=== PATIENT | female | born 1990 | race Caucasian/White ===

== ENCOUNTER → 2017-01-21 | Outpatient (CLI) | payer OTHER ==
[2017-01-21 19:39] LABS: CH 30.1; CHCM 34.8; HCT 40.8 % (34.0-46.0); HDW 2.64; HGB 13.6 gm/dL (11.4-16.0); MCHC 33.4 g/dL (31.0-37.0); MCV 86.8 fL (80.0-100.0); Mean Platelet Volume 6.8; RDW 12.1 % (11.5-15.5); WBC 6.6 k/uL (3.8-10.6)
[2017-01-21 19:52] LABS: Glucose 90 mg/dL (74-99); Non-African American GFR(MDRD) >60 (>60 ml/min/1.73 sqM)
[2017-01-21 20:22] LABS: Hepatitis B Surface Ag Index 0.08
--- NOTE | 2017-01-22 11:48 | US ---
EXAMINATION TYPE: US OB <= 14 wk fetus DATE OF EXAM: 01/21/2017 6:22 PM COMPARISON: NONE CLINICAL HISTORY: Z36 Confirm Dates. EXAM PERFORMED: OBTA EXAM MEASUREMENTS: GESTATIONAL AGE / DATING Physician Established: not established Dates by LMP: (11 weeks/3 days) EDC: 08/09/2017 Dates by First Scan: STUDENT RECORDS SPECIALIST Dates by Current Scan for: (11 weeks/ 1 days) EDC: 08/11/2017 MATERNAL ANATOMY Uterus: 10.4 x 8.2 x 7.4cm Right Ovary: 2.6 x 2.0 x 1.5cm Left Ovary: 3.6 x 2.4 x 2.4cm Post CDS / Adnexa: wnl Presence of free fluid: no Presence of corpus luteal cyst: not seen Presence of subchorionic bleed: no GESTATION / SURVEY CRL: 4.2 (11 weeks/1 days) MSD: wnl Yolk Sac (normal less than 6mm): not seen Heart Rate: 178 bpm Rhythm: Normal IUP: Viable IUP Date of LMP: 11/02/2016 Beta HcG (if available): not available TECHNOLOGIST IMPRESSION: Viable 11w1d fetus seen and appears wnl IMPRESSION: 1. Single intrauterine gestation estimated at 11 weeks 1 day gestation based on crown-rump length teodoro surement. This would have a calculated EDC of 08/11/2017 based on current measurements.
[2017-01-24 04:16] LABS: HIV-1/HIV-2 Ab Screen NONREAC (NON REAC)
[2017-01-25 04:06] LABS: Toxoplasma Antibody (IgG) <3.0 IU/mL (<7.2)
== END | disposition home or self-care (01) ==
LOC: RADUSMAIN 18:00
PROVIDERS: ATTEND Obstetrics & Gynecology
DX: Z36 Encounter for antenatal screening of mother (principal); O26.811 Pregnancy related exhaustion and fatigue, first trimester; Z3A.11 11 weeks gestation of pregnancy
CPT/HCPCS: 76801; 82565; 82947; 85027; 86762; 86777; 86778; 86780; 86850; 86900; 86901; 87340; 87389

== ENCOUNTER → 2017-05-07 | Outpatient (CLI) | payer OTHER ==
[2017-05-07 10:33] LABS: CHCM 34.7; HCT 35.1 % (34.0-46.0); HDW 3.24; HGB 11.8 gm/dL (11.4-16.0); MCH 29.3 pg (25.0-35.0); MCHC 33.7 g/dL (31.0-37.0); MCV 87.1 fL (80.0-100.0); Mean Platelet Volume 7.4; RBC 4.03 m/uL (3.80-5.40); RDW 12.4 % (11.5-15.5); WBC 7.3 k/uL (3.8-10.6)
== END | disposition home or self-care (01) ==
LOC: LABWHC1 09:11
PROVIDERS: ATTEND Obstetrics & Gynecology
DX: Z34.82 Encounter for supervision of other normal pregnancy, second trimester (principal)
CPT/HCPCS: 36415; 82950; 85027

== ENCOUNTER → 2017-05-13 | Outpatient (CLI) | payer OTHER ==
[2017-05-13 12:47] LABS: Glucose 3 Hour, Gest 53 mg/dL
== END | disposition home or self-care (01) ==
LOC: LABWHC1 07:33
PROVIDERS: ATTEND Obstetrics & Gynecology
DX: O99.810 Abnormal glucose complicating pregnancy (principal); Z3A.00 Weeks of gestation of pregnancy not specified
CPT/HCPCS: 36415; 82951; 82952

== ENCOUNTER 2017-06-09 19:24 | Outpatient (CLI) | payer OTHER ==
[2017-06-09 20:44] VITALS: BP 114/80; PULSE 98; RESP 17; TEMP 96.7
--- NOTE | 2017-06-10 08:39 | P.MSEPDOC ---
Presenting Problems - Arrival Data Date of Arrival on Unit: 06/09/17 Time of Arrival on Unit: 19:24 Mode of Transport: Ambulatory - Complaint OB-Reason for Admission/Chief Complaint: Decreased Movement Medical History - Information : 3 Para: 2 Term: 2 : 0 Abortions: Spontaneous or Elective: 0 Number of Living Children: 2 - Gestational Age Expected Date of Delivery: 07/09/17 Gestational Age by LONI (wks/days): 35 Weeks and 6 Days Review of Systems - Review of Systems Constitutional: No problems Breast: No problems ENT: No problems Cardiovascular: No problems Respiratory: No problems Gastrointestinal: No problems Genitourinary: No problems Musculoskeletal: No problems Neurological: No problems Skin: No problems Comment: depression Vital Signs - Temperature Temperature: 96.7 F Temperature Source: Temporal Artery Scan - Pulse Pulse Oximetery Pulse Rate: 98 - Respirations Respiratory Rate: 17 Oxygen Delivery Method: Room Air O2 Sat by Pulse Oximetry: 98 - Blood Pressure Right Arm Blood Pressure: 114/80 Blood Pressure Mean: 91 Blood Pressure Source: Automatic Cuff Medical Screen Scoring (Pre) - Cervical Exam Dilation: Exam Deferred Effacement: Exam Deferred Membranes: Intact - Uterine Contractions Frequency: N/A Duration: N/A Intensity: N/A - Maternal Vital Signs Maternal Temperature: N/A Maternal Blood Pressure: N/A Signs of Preeclampsia: N/A Maternal Respirations: N/A - Maternal Trauma Maternal Trauma: N/A - Assessment Baseline FHR: 135 Heart Rate - NICHD Category: Category I (Normal) = 0 NST: Reactive Position: N/A Station: N/A - Total Score Total Score (Pre): 0 - Level of Risk Level of Risk: N/A Physician Notification (Pre) - Physician Notified Physician Notified Date: 06/09/17 Physician Notified Time: 20:26 Physician/Practitioner Notifed:: Nelda Spoke With: telephone New Order Received: Yes (discharge and have patient follow up in office tomorrow.) Disposition - Disposition OB Disposition: Discharge to home Discharge Date: 06/09/17 Discharge Time: 20:40 I agree with the RN Medical Screening Exam: Yes Risk & Benefit of care provided described in d/c instruction: Yes Diagnosis: RELATED CONDITIONS, UNSPECIFIED, THIRD TRIMESTER
== END 2017-06-09 20:40 | disposition home or self-care (01) ==
LOC: FBPOP 19:24
PROVIDERS: ATTEND Obstetrics & Gynecology
DX: O26.93 Pregnancy related conditions, unspecified, third trimester (principal); Z3A.35 35 weeks gestation of pregnancy
CPT/HCPCS: 59025; 99213

== ENCOUNTER 2017-07-19 06:00 | Inpatient (IN) | payer OTHER ==
--- NOTE | 2017-07-18 18:04 | P.HPOB ---
History of Present Illness H&P Date: 07/18/17 Chief Complaint: Intrauterine growth restriction. This patient is a pleasant 26-year-old 3 para 2 female estimated date of confinement 08/09/2017 estimated gestational age 37-0/7 weeks who presents to labor and delivery for induction of labor secondary to intrauterine growth restriction. Patient's had been uncomplicated until approximately 35 weeks when she had a growth ultrasound that showed very poor growth. I refer this patient to maternal- medicine for evaluation and Dr. Worthington felt that this baby had severe IUGR with growth less than the 5th percentile recommended delivery at 37-0/7 weeks. Nonstress testing has been normal as well as Dopplers. The maternal- medicine physician did not know the etiology of her growth restriction. I had a long discussion with the patient and her about the recommendations for delivery, benefits and risks. They wish to proceed at this time. Review of Systems Constitutional: Denies chills, Denies fever Ears, nose, mouth and throat: Denies headache, Denies sore throat Cardiovascular: Denies chest pain, Denies shortness of breath Respiratory: Denies cough Gastrointestinal: Reports heartburn Genitourinary: Reports Menstruation: Reports amenorrhea Past Medical History Past Medical History: Asthma History of Any Multi-Drug Resistant Organisms: None Reported Past Surgical History: Adenoidectomy, Tonsillectomy Past Anesthesia/Blood Transfusion Reactions: No Reported Reaction Past Psychological History: Depression Smoking Status: Never smoker Past Drug Use History: None Reported - Past Family History Father Family Medical History: Coronary Artery Disease (CAD) Additional Family Medical History / Comment(s): Father of heart attack at 50 years of age Medications and Allergies Home Medications Medication Instructions Recorded Confirmed Type Scd-Mfik-Ousez Acid 1 tab PO DAILY 05/29/15 06/09/17 History [-U Capsule (formulary)] Allergies Allergy/AdvReac Type Severity Reaction Status Date / Time No Known Allergies Allergy Verified 05/29/15 17:35 Exam - OBG Physical Exam Abdomen: bowel sounds normal, no diffuse tenderness, no bruit present, no guarding noted, no hepatomegaly, no splenomegaly, no mass Vulva: both: normal Vagina: normal moisture, no discharge Cervix: Cervix in the office is 2 cm dilated and soft. Uterus: enlarged (Fundal height is 36 cm) Results blood work shows she is O positive, rubella immune, RPR nonreactive, HIV nonreactive, hepatitis B negative, group B strep was negative, Glucola was abnormal with a normal three-hour gtt., ultrasounds as above. Assessment and Plan (1) IUGR (intrauterine growth restriction) affecting care of mother Narrative/Plan: This is a pleasant 26-year-old 3 para 2 female 37-0/7 weeks gestation with severe IUGR with recommendations for delivery per maternal medicine. Plan at this time is induction of labor and anticipate vaginal delivery. I have had a long discussion with the patient and her about clinical situation and current recommendations in the understand the benefits and risks of delivery versus not. Plan at this time is induction of labor. Patient understands that I will not be here the rest of the week and therefore Dr. Raygoza we will proceed with the rest of the induction and delivery. Status: Acute
[2017-07-19] MEDS ORDERED: OXYTOCIN 20 UNITS/1000 ML NS 1,000 ML IV SCH (06:29)
[2017-07-19] MEDS ORDERED: METHYLERGONOVINE 0.2 MG/ML 1 ML AMP IM PRN (06:29)
[2017-07-19] MEDS ORDERED: CARBOPROST TROMETHAMINE 250 MCG/ML 1 ML AMP IM PRN (06:29)
[2017-07-19] MEDS ORDERED: LIDOCAINE 1% (PF) 10 MG/ML (30 ML SDV) SQ PRN (06:29)
[2017-07-19] MEDS ORDERED: TERBUTALINE 1 MG/ML VIAL SQ PRN (06:29)
[2017-07-19] MEDS ORDERED: OXYTOCIN 10 UNIT/ML 1 ML VIAL IM PRN (06:29)
[2017-07-19] MEDS: LACTATED RINGERS 1,000 ML IV SCH ×2 (06:35→11:30)
[2017-07-19 06:37] VITALS: BMI 33.0
[2017-07-19 07:00] LABS: Basophils # (A) 0.1 k/uL (0-0.2); Basophils % (A) 1 %; CH 27.7; CHCM 34.2; Eosinophils # (A) 0.1 k/uL (0-0.7); Eosinophils % (A) 1 %; HCT 38.7 % (34.0-46.0); HDW 3.15; HGB 12.7 gm/dL (11.4-16.0); Luc % (Auto) 3; Lymphocytes # (A) 3.7 k/uL (1.0-4.8); Lymphocytes % (A) 37 %; MCH 26.7 pg (25.0-35.0); MCHC 32.9 g/dL (31.0-37.0); MCV 81.3 fL (80.0-100.0); Monocytes # (A) 0.7 k/uL (0-1.0); Monocytes % (A) 7 %; Neutrophils # (A) 5.3 k/uL (1.3-7.7); Neutrophils % (A) 52 %; RBC 4.77 m/uL (3.80-5.40); RDW 14.7 % (11.5-15.5); WBC 10.1 k/uL (3.8-10.6); WBC (Perox) 9.91
[2017-07-19 08:12] LABS: ALT 22 U/L (9-52); AST 17 U/L (14-36); LDH 459 U/L (313-618); Non-African American GFR(MDRD) >60 (>60 ml/min/1.73 sqM); Uric Acid 7.5 mg/dL (3.7-7.4)
[2017-07-19 08:30] LABS: INR 0.9 (<1.2); Partial Thromboplastin Time 23.9 sec (22.0-30.0); Prothrombin Time 9.5 sec (9.0-12.0)
[2017-07-19] MEDS ORDERED: BUPIVACAINE (PF) 0.25% 30 ML VIAL ONE (11:34)
[2017-07-19] MEDS ORDERED: SODIUM CHLORIDE 0.9% 100 ML BAG ONE (11:34)
[2017-07-19] MEDS ORDERED: fentaNYL (PF) 50 MCG/ML 5 ML AMP ONE (11:34)
[2017-07-19] MEDS ORDERED: BUPIVACAINE (PF) 0.25% 25 ML, fentaNYL (PF) 200 MCG in SODIUM CHLORIDE 0.9% 71 ML EPIDURAL ONE (11:57)
[2017-07-19] MEDS ORDERED: LANOLIN CREAM 5 GM TUBE TOPICAL PRN (13:31)
[2017-07-19] MEDS ORDERED: diphenhydrAMINE 25 MG CAP PO PRN (13:31)
[2017-07-19] MEDS ORDERED: diphenhydrAMINE 50 MG/ML 1 ML VIAL IVP PRN (13:31)
[2017-07-19] MEDS ORDERED: BISACODYL 10 MG SUPP RECTAL PRN (13:31)
[2017-07-19] MEDS ORDERED: WITCH HAZEL 1 EACH MED..PAD TOPICAL PRN (13:31)
[2017-07-19] MEDS ORDERED: IBUPROFEN 600 MG TAB PO PRN (13:31)
[2017-07-19] MEDS ORDERED: ZOLPIDEM 5 MG TAB PO PRN (13:31)
[2017-07-19] MEDS ORDERED: BENZOCAINE/MENTHOL SPRAY 1 GM/SPRAY AEROSOL TOPICAL PRN (13:31)
[2017-07-19] MEDS ORDERED: Acetaminophen-Codeine 300-30mg TAB PO PRN ×2 (13:31)
[2017-07-19] MEDS ORDERED: HYDROCORTISONE 2.5% RECTAL CREAM 30 GM TUBE RECTAL PRN (13:31)
[2017-07-19] MEDS ORDERED: SIMETHICONE 80 MG CHEWABLE PO PRN (13:31)
[2017-07-19] MEDS ORDERED: ACETAMINOPHEN TAB 325 MG TAB PO PRN (13:31)
--- NOTE | 2017-07-19 13:33 | P.PROBDLV ---
Vaginal Delivery Note - . Vaginal Delivery Note: 26 year old presents at 37 weeks for induction of labor due to IUGR. Cervix is 2/50/-2 and she is not ric. heart tones are 130 to 135 with moderate variability and reactive. Amniotomy was performed at 6:40 in the morning clear fluid noted. Pitocin was also started. When she was 3 cm dilated she got an epidural. She progressed to complete by 1309. She pushed and delivered a viable female infant over intact perineum under epidural anesthesia at 1317. Head delivered OA, anterior shoulder delivered gentle downward traction followed by posterior shoulder and rest of body. Nose and mouth bulb suctioned, placed on mother's abdomen. Patient wanted delayed cord clamping so when the cord stopped pulsing the cord was clamped and cut. Apgars 8, 9, weight 4 lbs. 4 oz. Placenta delivered spontaneously, intact with three-vessel cord. Vagina, cervix, and perineum were inspected. No lacerations noted. Estimated blood loss 100 mL. Mother and baby in stable condition.
[2017-07-19] MEDS: SENNOSIDES-DOCUSATE SODIUM 1 EACH TAB PO SCH (23:46)
--- NOTE | 2017-07-20 07:23 | P.PNOBGVD ---
Subjective - Subjective Principal diagnosis: S/P NVD PPD #1 Interval history: Patient seen and examined. Denies N/V, F/C, CP, SOB, calf pain. Patient reports: Reports appetite normal, Reports voiding normally, Reports pain well controlled, Reports ambulating normally Objective - Latest Vital Signs Latest vital signs: Vital Signs Temp Pulse Resp BP 07/20/17 00:00 97.6 F 70 16 139/85 07/19/17 20:00 98.3 F 77 16 129/78 07/19/17 16:00 98.5 F 82 16 135/72 07/19/17 15:31 98.1 F 86 16 132/78 07/19/17 15:01 82 16 136/68 07/19/17 14:31 81 16 147/78 07/19/17 14:16 98.0 F 69 16 139/86 07/19/17 14:01 70 16 147/80 07/19/17 13:46 98.4 F 76 16 134/77 07/19/17 13:31 98.2 F 76 16 131/73 Intake and Output 07/19/17 07/20/17 07/20/17 22:59 06:59 14:59 Other: # Voids 1 1 - Exam Lungs: bilateral: normal Chest: Normal S1, Normal S2 Extremities: Present: normal Abdomen: Present: normal appearance, soft Uterus: Present: normal, firm - Labs Labs: Abnormal Lab Results - Last 24 Hours (Table) 07/19/17 Range/Units 07:42 Uric Acid 7.5 H (3.7-7.4) mg/dL Assessment and Plan (1) Normal vaginal delivery Narrative/Plan: 1. continue pp care Current Visit: Yes Status: Acute Code(s): O80 - ENCOUNTER FOR FULL-TERM UNCOMPLICATED DELIVERY SNOMED Code(s): 50947218
[2017-07-20] MEDS: SENNOSIDES-DOCUSATE SODIUM 1 EACH TAB PO SCH ×2 (12:27→20:11)
--- NOTE | 2017-07-21 07:24 | P.DS ---
Providers Date of admission: 07/19/17 06:10 Expected date of discharge: 07/21/17 Attending physician: Sal Robert Primary care physician: Derik Cowan - Discharge Diagnosis(es) (1) Normal vaginal delivery Current Visit: Yes Status: Acute Hospital Course: Patient presented for induction of labor at 37 weeks for intrauterine growth restriction. She underwent a normal vaginal delivery. Her course was uncomplicated. She'll be discharged home day #2 in stable condition to follow-up with Dr. Robert in 6 weeks. Plan - Discharge Summary New Discharge Prescriptions: New Ibuprofen [Motrin] 600 mg PO Q6HR PRN #30 tab PRN Reason: Mild Pain Or Fever >= 100.5 No Action Iwv-Iztn-Gcyyz Acid [-U Capsule (formulary)] 1 tab PO DAILY Discharge Medication List Irt-Gmie-Exbht Acid [-U Capsule (formulary)] 1 tab PO DAILY 08/05 [History] Ibuprofen [Motrin] 600 mg PO Q6HR PRN #30 tab 07/21/17 [Rx] Follow up Appointment(s)/Referral(s): Acacia Raygoza DO [Doctor of Osteopathic Medicine] - 6 Weeks Discharge Disposition: HOME SELF-CARE
[2017-07-21] MEDS: SENNOSIDES-DOCUSATE SODIUM 1 EACH TAB PO SCH (09:43)
[2017-07-21 16:06] VITALS: BP 138/85; PULSE 73; RESP 14; TEMP 98
== END 2017-07-21 19:00 | disposition home or self-care (01) | DRG 775 ==
LOC: 4FBP 06:10
PROVIDERS: ADMIT Obstetrics & Gynecology; ATTEND Obstetrics & Gynecology
PROC: 10E0XZZ Delivery of Products of Conception, External Approach (ICD-10-PCS; principal; 2017-07-19)
PROC: 3E033VJ Introduction of Other Hormone into Peripheral Vein, Percutaneous Approach (ICD-10-PCS; 2017-07-19)
PROC: 10907ZC Drainage of Amniotic Fluid, Therapeutic from Products of Conception, Via Natural or Artificial Opening (ICD-10-PCS; 2017-07-19)
DX: O36.5930 Maternal care for other known or suspected poor fetal growth, third trimester, not applicable or unspecified (principal); O99.344 Other mental disorders complicating childbirth; F32.9 Major depressive disorder, single episode, unspecified; Z37.0 Single live birth; O99.52 Diseases of the respiratory system complicating childbirth; J45.909 Unspecified asthma, uncomplicated; Z3A.37 37 weeks gestation of pregnancy; Z82.49 Family history of ischemic heart disease and other diseases of the circulatory system
CPT/HCPCS: 82565; 83615; 84450; 84460; 84550; 85025; 85610; 85730; 88307

== ENCOUNTER 2018-03-26 21:58 | Emergency (ER) | payer OTHER ==
--- NOTE | 2018-03-27 00:03 | ED ---
General Adult HPI - General Chief complaint: Wound/Laceration Stated complaint: L Thumb Cut Time Seen by Provider: 03/26/18 23:20 Source: patient Mode of arrival: ambulatory Limitations: no limitations - History of Present Illness Initial comments: Patient is a 27-year-old female who presents with a chief complaint of a laceration to the pad of her left thumb. The patient states that she accidentally cut herself with a stainless steel knife while cutting chicken today. This happened about 6:00 this evening. The patient states that initially there was a lot of bleeding. Patient states the bleeding is controlled with pressure. Patient states that she is not having much pain there currently. Sensation and strength is intact. Patient does not have any other contributory medical history, no known ALLERGIES. - Related Data Home Medications Medication Instructions Recorded Confirmed Kbm-Hlks-Igrjy Acid 1 tab PO DAILY 05/29/15 07/19/17 [-U Capsule (formulary)] Previous Rx's Medication Instructions Recorded Ibuprofen [Motrin] 600 mg PO Q6HR PRN #30 tab 07/21/17 Sulfamethox-Tmp 800-160Mg [Bactrim 1 tab PO Q12HR #14 tab 03/26/18 DS 800-160 mg] Allergies Allergy/AdvReac Type Severity Reaction Status Date / Time No Known Allergies Allergy Verified 03/26/18 22:22 Review of Systems ROS Statement: Those systems with pertinent positive or pertinent negative responses have been documented in the HPI. ROS Other: All systems not noted in ROS Statement are negative. Past Medical History Past Medical History: Asthma History of Any Multi-Drug Resistant Organisms: None Reported Past Surgical History: Adenoidectomy, Tonsillectomy Past Anesthesia/Blood Transfusion Reactions: No Reported Reaction Past Psychological History: Depression Smoking Status: Never smoker Past Alcohol Use History: None Reported Past Drug Use History: None Reported - Past Family History Father Family Medical History: Coronary Artery Disease (CAD) Additional Family Medical History / Comment(s): Father of heart attack at 50 years of age General Exam Limitations: no limitations General appearance: alert, in no apparent distress Head exam: Present: atraumatic, normocephalic Eye exam: Present: normal appearance ENT exam: Present: normal exam Neck exam: Present: normal inspection Respiratory exam: Present: normal lung sounds bilaterally. Absent: respiratory distress, wheezes Cardiovascular Exam: Present: regular rate, normal rhythm GI/Abdominal exam: Present: soft. Absent: distended, tenderness Rectal exam: Present: deferred Extremities exam: Present: other (Patient has a 2 cm very superficial laceration to the pad of her left thumb.) Back exam: Present: normal inspection Neurological exam: Present: alert, oriented X3, normal gait Psychiatric exam: Present: normal affect, normal mood Skin exam: Present: warm, dry, intact Course Vital Signs 03/26/18 22:19 Temperature 98.2 F Pulse Rate 74 Respiratory 18 Rate Blood Pressure 133/93 O2 Sat by Pulse 98 Oximetry Medical Decision Making - Medical Decision Making Patient presents with chief complaint of a laceration to her left thumb. On initial evaluation, vital signs are stable, patient is in no acute distress. Examination of the patient's left hand shows a very superficial laceration to the pad of the left thumb. Bleeding is controlled. Laceration was explored, it is only through the epidermis. At this time, stitches are not warranted. Patient is concerned for infection that she was cutting raw chicken. At this time, there does not appear to be any acute infection. Tetanus status is up-to- date. I discussed use of triple antibiotic ointment with the patient, and washing the area. Given patient's concern for infection, she was written a prescription for Bactrim however she was instructed not to fill it immediately. She was given exquisite sides and symptoms that should prompt return visit for reevaluation of infection. Patient was instructed to fill the prescription if she has any increased swelling, drainage, erythema, or pain tracking toward her hand. She was instructed to follow up with primary care in 1-2 days, return to the emergency department if symptoms worsen. Disposition Clinical Impression: Laceration Disposition: HOME SELF-CARE Condition: Good Prescriptions: Sulfamethox-Tmp 800-160Mg [Bactrim DS 800-160 mg] 1 tab PO Q12HR #14 tab Is patient prescribed a controlled substance at d/c from ED?: No Referrals: Derik Cowan MD [Primary Care Provider] - 1-2 days
[2018-03-27 00:14] VITALS: BP 122/82; PULSE 83; RESP 17; TEMP 98.1
== END 2018-03-27 00:14 | disposition home or self-care (01) ==
LOC: EC 21:58
DX: S61.012A Laceration without foreign body of left thumb without damage to nail, initial encounter (principal); W26.0XXA Contact with knife, initial encounter
CPT/HCPCS: 99282

== ENCOUNTER 2019-04-17 07:35 | Day surgery (SDC) | payer OTHER ==
[2019-04-11 09:48] VITALS: BMI 28.1
[~2019-04-17 07:35] MED LIST: DEXAMETHASONE SOD PHOSPHATE 10 MG/ML 1 ML VIAL IV ONE; HEPARIN SODIUM,PORCINE 5,000 UNIT/ML 1 ML VIAL SQ ONE; LIDOCAINE 1% 20 ML VIAL (10MG/ML) FOR IV START INTRADERMA PRN; SCOPOLAMINE 1.5MG/72HR PATCH TRANSDERM ONE
[2019-04-17] MEDS: LACTATED RINGERS 1,000 ML IV SCH ×2 (08:08→13:32)
[2019-04-17] MEDS: ONDANSETRON 4 MG/2 ML VIAL IVP ONE ×2 (08:08→10:47)
--- NOTE | 2019-04-17 08:45 | P.GSHP ---
History of Present Illness H&P Date: 04/17/19 Chief Complaint: Ventral hernia This a 28-year-old female who's developed an incarcerated ventral hernia. Patient presents today for repair. Patient developed a mass below her umbilicus. Past Medical History Past Medical History: Asthma History of Any Multi-Drug Resistant Organisms: None Reported Past Surgical History: Adenoidectomy, Tonsillectomy Additional Past Surgical History / Comment(s): tubes in ears Past Anesthesia/Blood Transfusion Reactions: No Reported Reaction Smoking Status: Never smoker - Past Family History Father Family Medical History: Coronary Artery Disease (CAD) Additional Family Medical History / Comment(s): Father of heart attack at 50 years of age Medications and Allergies Home Medications Medication Instructions Recorded Confirmed Type No Known Home Medications 04/12/19 04/12/19 History Allergies Allergy/AdvReac Type Severity Reaction Status Date / Time No Known Allergies Allergy Verified 04/11/19 09:39 Surgical - Exam Vital Signs Temp Pulse Resp BP Pulse Ox 98.2 F 84 16 109/73 98 04/17/19 07:52 04/17/19 07:52 04/17/19 07:52 04/17/19 07:52 04/17/19 07:52 - General well developed, well nourished, no distress - Eyes PERRL - ENT normal pinna - Neck no masses - Respiratory normal expansion - Cardiovascular Rhythm: regular - Abdomen 3 cm incarcerated ventral hernia located below the umbilicus Abdomen: soft, non tender Assessment and Plan Assessment: Incarcerated ventral hernia. We'll perform laparoscopic robotic-assisted repair.
[2019-04-17 08:57] LABS: Basophils % (A) 1 %; Eosinophils # (A) 0.2 k/uL (0-0.7); Eosinophils % (A) 4 %; HCT 42.7 % (34.0-46.0); HGB 14.3 gm/dL (11.4-16.0); Lymphocytes # (A) 1.7 k/uL (1.0-4.8); Lymphocytes % (A) 39 %; MCH 29.6 pg (25.0-35.0); MCHC 33.6 g/dL (31.0-37.0); MCV 88.2 fL (80.0-100.0); Monocytes # (A) 0.4 k/uL (0-1.0); Monocytes % (A) 9 %; Neutrophils % (A) 46 %; Platelet Count 258 k/uL (150-450); RBC 4.85 m/uL (3.80-5.40); RDW 13.4 % (11.5-15.5); WBC 4.4 k/uL (3.8-10.6)
[2019-04-17] MEDS ORDERED: GLYCOPYRROLATE 0.2 MG/ML 2 ML VIAL ONE (09:14)
[2019-04-17] MEDS ORDERED: SUCCINYLCHOLINE CHLORIDE 100 MG/5 ML SYR IV ONE (09:14)
[2019-04-17] MEDS ORDERED: fentaNYL (PF) 50 MCG/ML 2 ML AMP ONE (09:14)
[2019-04-17] MEDS ORDERED: PROPOFOL 10 MG/ML 20 ML VIAL IV ONE (09:14)
[2019-04-17] MEDS ORDERED: LIDOCAINE 1% INJ 10MG/ML (20 ML MDV) ONE (09:14)
[2019-04-17] MEDS ORDERED: NEOSTIGMINE 1 MG/ML 10 ML VIAL ONE (09:14)
[2019-04-17] MEDS ORDERED: ROCURONIUM BROMIDE 10 MG/ML 10 ML VIAL IV ONE (09:14)
[2019-04-17] MEDS ORDERED: MIDAZOLAM 2 MG/2 ML VIAL ONE (09:14)
[2019-04-17] MEDS ORDERED: LABETALOL 5 MG/ML VIAL MDV ONE (09:14)
[2019-04-17] MEDS ORDERED: KETOROLAC 30 MG/ML 1 ML VIAL ONE (09:14)
[2019-04-17] MEDS ORDERED: HYDROmorphone (PF) 1 MG/ML ONE (09:14)
[2019-04-17] MEDS ORDERED: BUPIVACAINE (PF) 0.5% 30 ML VIAL SQ ONE ×2 (09:27)
[2019-04-17] MEDS: ceFAZolin IN SWFI 2 GM/20 ML SYRINGE IVP ONE ×2 (09:37→09:44)
[2019-04-17] MEDS ORDERED: LACTATED RINGERS 1,000 ML IV ONE (09:46)
--- NOTE | 2019-04-17 10:32 | P.OP ---
Date of Procedure: 04/17/19 Preoperative Diagnosis: Incarcerated ventral hernia Postoperative Diagnosis: Incarcerated ventral hernia Procedure(s) Performed: Laparoscopic robotic-assisted repair of incarcerated ventral hernia Anesthesia: ANDREAS Surgeon: Isra Meyer Estimated Blood Loss (ml): 5 Pathology: other (Incarcerated fat/hernia sac/omentum) Condition: stable Disposition: PACU Description of Procedure: MThe patient was placed on the operating table in the supine position. He rec eived general anesthesia. His abdomen was prepped and draped usual fashion. Using a 5 mm optical trocar under direct visualization the peritoneal cavity was entered in the left upper quadrant. The abdomen was then insufflated. The laparoscope was placed back into the perineal cavity. Next a 8 mm robotic trocar was placed in the left lower quadrant and a 12 mm robotic trocar was placed in the left lateral position. The original 5 mm trocar was exchanged for a 8 mm robotic trocar. The patient's placed in the left side up position. And the patient was docked to the robot. The ventral hernia hernia was visualized. Using hook cautery the peritoneum over the incisional hernia was excised. The incarcerated fat/omentum was dissected free with the hook cautery. The hernia sac was dissected as well. This was removed sent to pathology. The fascial opening was repaired using 0V LOC suture. Next a piece of 11 cm round ventral light ST mesh was placed into the. Cavity and secured with 2 OV lock suture. The patient was undocked the robot. The needles were retrieved. The fascia of the 12 mm trocar site was closed with 0 Ethibond suture. Skin was closed interrupted 3-0 Monocryl suture. Dermabond dressings was applied. Patient tolerated procedure well and was sent to recovery room stable condition.
[2019-04-17] MEDS: HYDROmorphone 0.5 MG/0.5 ML SYRINGE IVP PRN ×2 (10:35→10:47)
[2019-04-17 10:45] VITALS: TEMP 96.8
[2019-04-17 12:06] VITALS: RESP 18
[2019-04-17] MEDS ORDERED: ONDANSETRON 4 MG/2 ML VIAL IVP ONE (13:30)
[2019-04-17] MEDS ORDERED: METOCLOPRAMIDE 5 MG/ML 2 ML VIAL IVP ONE (13:31)
[2019-04-17 13:57] VITALS: BP 118/82; PULSE 97
== END 2019-04-17 14:25 | disposition home or self-care (01) ==
LOC: OR 07:35
PROVIDERS: ATTEND Surgery
DX: K43.6 Other and unspecified ventral hernia with obstruction, without gangrene (principal); J45.909 Unspecified asthma, uncomplicated; Z82.49 Family history of ischemic heart disease and other diseases of the circulatory system
CPT/HCPCS: 49653; S2900; 81025; 85025; 88302

== ENCOUNTER 2019-10-28 01:22 | Emergency (ER) | payer OTHER ==
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
[2019-10-28 02:52] VITALS: BP 120/74; PULSE 81; RESP 18; TEMP 97.8
== END 2019-10-28 02:52 | disposition home or self-care (01) ==
LOC: EC 01:22
DX: S09.90XA Unspecified injury of head, initial encounter (principal); W18.09XA Striking against other object with subsequent fall, initial encounter; Y92.009 Unspecified place in unspecified non-institutional (private) residence as the place of occurrence of the external cause; Y93.89 Activity, other specified
CPT/HCPCS: 70450; 72125; 99283

== ENCOUNTER → 2019-10-31 | Outpatient (CLI) | payer OTHER ==
[2019-10-31 12:35] LABS: Basophils % (A) 1 %; Eosinophils # (A) 0.1 k/uL (0-0.7); Eosinophils % (A) 1 %; HCT 42.5 % (34.0-46.0); HGB 13.6 gm/dL (11.4-16.0); Lymphocytes % (A) 37 %; MCH 28.9 pg (25.0-35.0); Mean Platelet Volume 7.8; Monocytes # (A) 0.3 k/uL (0-1.0); Monocytes % (A) 5 %; Neutrophils # (A) 2.9 k/uL (1.3-7.7); Neutrophils % (A) 53 %; Platelet Count 291 k/uL (150-450); RBC 4.72 m/uL (3.80-5.40); RDW 12.5 % (11.5-15.5); WBC 5.5 k/uL (3.8-10.6)
[2019-10-31 18:38] LABS: African American GFR (CKD) 141.8 (60.0-200.0); Albumin 4.4 g/dL (3.80-4.90); Albumin/Globulin Ratio 2.1 (1.60-3.17); Anion Gap 6.4 mmol/L (4.00-12.00); BUN/Creat Ratio 13.33 Ratio (12.00-20.00); Bilirubin, Conjugated 0.2 mg/dL (0.20-0.40); Bilirubin,Unconjugated 0.5 mg/dL; Calcium 9.2 mg/dL (8.7-10.3); Carbon Dioxide 25.6 mmol/L (21.6-31.8); Chol/HDL Ratio 3.98; Globulin 2.1 g/dL (1.6-3.3); LDL Cholesterol,Calculated 126.2 mg/dL (0.0-131.0); Non-African American GFR(CKD) 122.3 (60.0-200.0); Potassium 4.7 mmol/L (3.5-5.5); Total Bilirubin 0.7 mg/dL (0.3-1.2); Total Protein 6.5 g/dL (6.2-8.2); VLDL Calculation 25.8 mg/dL (5.00-40.00)
== END | disposition home or self-care (01) ==
LOC: LABWHC1 11:07
PROVIDERS: ATTEND Family Medicine
DX: Z00.00 Encounter for general adult medical examination without abnormal findings (principal); E78.00 Pure hypercholesterolemia, unspecified
CPT/HCPCS: 36415; 80053; 80061; 82248; 84443; 85025

== ENCOUNTER → 2020-05-01 | Outpatient (CLI) | payer OTHER | END | disposition home or self-care (01) | LOC: LABWHC1 09:20 | PROVIDERS: ATTEND Family Medicine | DX: R05 Cough (principal); R50.9 Fever, unspecified; Z20.828 Contact with and (suspected) exposure to other viral communicable diseases | CPT/HCPCS: 87798 ×3; 87498; 87502 ×2; 87634; U0003 ==

== ENCOUNTER 2021-09-01 23:39 | Emergency (ER) | payer OTHER ==
[2021-09-01 23:48] VITALS: RESP 18
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
[2021-09-02 00:49] LABS: Basophils # (A) 0.1 k/uL (0-0.2); Basophils % (A) 1 %; Eosinophils # (A) 0.7 k/uL (0-0.7); Eosinophils % (A) 10 %; HCT 37.8 % (34.0-46.0); HGB 12.3 gm/dL (11.4-16.0); Lymphocytes # (A) 1.9 k/uL (1.0-4.8); Lymphocytes % (A) 28 %; MCH 29.8 pg (25.0-35.0); MCHC 32.6 g/dL (31.0-37.0); MCV 91.6 fL (80.0-100.0); Mean Platelet Volume 7.6; Monocytes # (A) 0.4 k/uL (0-1.0); Monocytes % (A) 5 %; Neutrophils # (A) 3.7 k/uL (1.3-7.7); Neutrophils % (A) 54 %; Platelet Count 352 k/uL (150-450); RBC 4.12 m/uL (3.80-5.40); RDW 11.9 % (11.5-15.5); WBC 6.8 k/uL (3.8-10.6)
[2021-09-02 01:06] LABS: ALT 16 U/L (4-34); AST 28 U/L (14-36); African American GFR (CKD) >90 (>60 ml/min/1.73 sqM); Alkaline Phosphatase 62 U/L (38-126); Anion Gap 10 mmol/L; Blood Urea Nitrogen 10 mg/dL (7-17); Calcium 8.9 mg/dL (8.4-10.2); Carbon Dioxide 22 mmol/L (22-30); Chloride 108 mmol/L (98-107); Glucose 108 mg/dL (74-99); Non-African American GFR(CKD) >90 (>60 ml/min/1.73 sqM); Potassium 3.3 mmol/L (3.5-5.1); Sodium 140 mmol/L (137-145); Total Bilirubin 0.3 mg/dL (0.2-1.3)
[2021-09-02] MEDS ORDERED: KETOROLAC 15 MG/ML 1 ML VIAL IVP STA (01:06)
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
[2021-09-02 02:09] LABS: Alcohol 89 mg/dL
[2021-09-02 03:32] VITALS: BP 130/84; PULSE 83; TEMP 98.7
== END 2021-09-02 04:10 | disposition home or self-care (01) ==
LOC: EC 23:39
DX: S22.21XA Fracture of manubrium, initial encounter for closed fracture (principal); M25.511 Pain in right shoulder; M54.2 Cervicalgia; F17.200 Nicotine dependence, unspecified, uncomplicated; V89.2XXA Person injured in unspecified motor-vehicle accident, traffic, initial encounter; Y92.410 Unspecified street and highway as the place of occurrence of the external cause
CPT/HCPCS: 93005; 80053; 84484; 85025; 80320; 72125; 70450; 71250; 99285; 96374; J1885

== ENCOUNTER → 2022-11-08 | Outpatient (CLI) | payer OTHER ==
[2022-11-08 14:40] LABS: HCT 30.9 % (37.2-46.3); HGB 10.4 g/dL (12.0-15.0); MCH 28.4 pg (27.0-32.0); MCHC 33.7 g/dL (32.0-37.0); MCV 84.4 fL (80.0-97.0); Mean Platelet Volume 9.5 fL (9.5-12.2); NRBC Per 100 WBC 0 /100 WBCS (0.0-0.0); Platelet Count 240 X 10*3/uL (140-440); RBC 3.66 X 10*6/uL (4.10-5.20); WBC 7.42 X 10*3/uL (4.50-10.00)
== END | disposition home or self-care (01) ==
LOC: LABWHC1 09:52
PROVIDERS: ATTEND Obstetrics & Gynecology
DX: Z34.82 Encounter for supervision of other normal pregnancy, second trimester (principal); Z3A.00 Weeks of gestation of pregnancy not specified
CPT/HCPCS: 36415; 82950; 85027

== ENCOUNTER 2023-02-09 13:48 | Inpatient (IN) | payer OTHER ==
[2023-02-11] MEDS ORDERED: LIDOCAINE 0.5% (PF) 5 MG/ML (50 ML SDV) SQ PRN (05:54)
[2023-02-11] MEDS ORDERED: METHYLERGONOVINE 0.2 MG/ML 1 ML AMP IM PRN (05:54)
[2023-02-11] MEDS ORDERED: TERBUTALINE 1 MG/ML VIAL SQ PRN (05:54)
[2023-02-11] MEDS ORDERED: OXYTOCIN 30 UNITS/500 ML NS 30 UNIT in SALINE 1 500ML.BAG IV SCH ×2 (05:54→13:24)
[2023-02-11] MEDS ORDERED: miSOPROStoL 200 MCG TAB PO PRN (05:54)
[2023-02-11] MEDS ORDERED: CARBOPROST TROMETHAMINE 250 MCG/ML 1 ML AMP IM PRN (05:54)
[2023-02-11] MEDS ORDERED: OXYTOCIN 10 UNIT/ML 1 ML VIAL IM PRN (05:54)
[2023-02-11] MEDS ORDERED: LACTATED RINGERS 1,000 ML IV SCH (05:54)
[2023-02-11] MEDS ORDERED: TRANEXAMIC ACID IN NACL,ISO-OS 1,000 MG in EMPTY BAG 1 BAG IV PRN (05:54)
[2023-02-11 06:16] LABS: Basophils % (A) 0 %; Eosinophils # (A) 0.1 k/uL (0-0.7); Eosinophils % (A) 1 %; HCT 34.3 % (34.0-46.0); HGB 11.3 gm/dL (11.4-16.0); Lymphocytes # (A) 2.7 k/uL (1.0-4.8); Lymphocytes % (A) 26 %; MCH 24.4 pg (25.0-35.0); MCHC 32.9 g/dL (31.0-37.0); MCV 74.2 fL (80.0-100.0); Mean Platelet Volume 7.5; Microcytosis Slight; Monocytes # (A) 0.6 k/uL (0-1.0); Monocytes % (A) 6 %; Neutrophils # (A) 6.6 k/uL (1.3-7.7); Neutrophils % (A) 64 %; Platelet Count 232 k/uL (150-450); Poikilocytosis Slight; RBC 4.62 m/uL (3.80-5.40); RDW 14.9 % (11.5-15.5); WBC 10.2 k/uL (3.8-10.6)
--- NOTE | 2023-02-11 06:39 | P.HPOB ---
History of Present Illness H&P Date: 02/11/23 Chief Complaint: Requested induction of labor This patient is a pleasant 32-year-old 4 para 3 female estimated date of confinement 02/15/2023 estimated gestational age 39-3/7 weeks who presents to labor and delivery with requested induction of labor. Patient's care has been uncomplicated. She does have a history of IUGR with her last however this shown normal growth. Patient is uncomfortable requested induction at this time. Review of Systems Genitourinary: Reports Menstruation: Reports amenorrhea Past Medical History Past Medical History: Asthma History of Any Multi-Drug Resistant Organisms: None Reported Past Surgical History: Adenoidectomy, Hernia Repair, Tonsillectomy Additional Past Surgical History / Comment(s): tubes in ears Past Anesthesia/Blood Transfusion Reactions: No Reported Reaction Past Psychological History: Anxiety, Depression Smoking Status: Current some day smoker Past Alcohol Use History: Occasional Past Drug Use History: None Reported - Past Family History Father Family Medical History: Coronary Artery Disease (CAD) Additional Family Medical History / Comment(s): Father of heart attack at 50 years of age Medications and Allergies Allergies Allergy/AdvReac Type Severity Reaction Status Date / Time Penicillins AdvReac Unknown Verified 02/11/23 05:56 Childhood Exam Vital Signs Temp Pulse Resp BP Pulse Ox 02/11/23 05:54 97.3 F L 76 18 117/78 99 Intake and Output 02/10/23 02/10/23 02/11/23 14:59 22:59 06:59 Other: # Voids 1 Weight 66.678 kg - OBG Physical Exam Abdomen: bowel sounds normal, no diffuse tenderness, no bruit present, no guarding noted, no hepatomegaly, no splenomegaly, no mass Vulva: both: normal Vagina: normal moisture, no discharge Cervix: no lesion (Cervix is 350% -2 station), no discharge Uterus: enlarged (Fundal height is consistent with gestational age) Results blood work shows she is oh positive, rubella immune, RPR is no nreactive, hepatitis B is negative, HIV is nonreactive, Glucola was normal, group B strep was negative, most recent ultrasound showed estimated weight at 5 lbs. 12 oz. Result Diagrams: 02/11/23 06:00 Abnormal Lab Results - Last 24 Hours (Table) 02/11/23 Range/Units 06:00 Hgb 11.3 L (11.4-16.0) gm/dL MCV 74.2 L (80.0-100.0) fL MCH 24.4 L (25.0-35.0) pg Assessment and Plan Assessment: This is a pleasant 32-year-old 4 para 3 female estimated gestational age 39-3/7 weeks who presents to labor and delivery for requested induction of labor. Plan is induction of labor and anticipate vaginal delivery. (1) 39 weeks gestation of Current Visit: Yes Status: Acute Code(s): Z3A.39 - 39 WEEKS GESTATION OF SNOMED Code(s): 25944812 (2) Elective induction of labor planned Current Visit: No Status: Acute Code(s): GRT6958 - SNOMED Code(s): 588120609
[2023-02-11] MEDS ORDERED: SODIUM CHLORIDE 0.9% 100 ML BAG ONE (09:37)
[2023-02-11] MEDS ORDERED: ROPIVACAINE 5 MG/ML 20 ML AMPULE ONE (09:37)
[2023-02-11] MEDS ORDERED: fentaNYL (PF) 50 MCG/ML 5 ML AMP ONE (09:37)
[2023-02-11] MEDS ORDERED: HYDROCORTISONE 2.5% RECTAL CREAM 30 GM TUBE RECTAL PRN (13:24)
[2023-02-11] MEDS ORDERED: bisacodyL 10 MG SUPP RECTAL PRN (13:24)
[2023-02-11] MEDS ORDERED: ZOLPIDEM 5 MG TAB PO PRN (13:24)
[2023-02-11] MEDS ORDERED: BENZOCAINE/MENTHOL SPRAY 1 GM/SPRAY AEROSOL TOPICAL PRN (13:24)
[2023-02-11] MEDS ORDERED: diphenhydrAMINE 50 MG/ML 1 ML VIAL IVP PRN (13:24)
[2023-02-11] MEDS ORDERED: SIMETHICONE 80 MG CHEWABLE PO PRN (13:24)
[2023-02-11] MEDS ORDERED: diphenhydrAMINE 25 MG CAP PO PRN (13:24)
[2023-02-11] MEDS ORDERED: LANOLIN CREAM 5 GM TUBE TOPICAL PRN (13:24)
[2023-02-11] MEDS: IBUPROFEN 600 MG TAB PO PRN ×2 (13:40→20:30)
[2023-02-11] MEDS: SENNOSIDES-DOCUSATE SODIUM 1 EACH TAB PO SCH ×2 (15:16→20:30)
--- NOTE | 2023-02-11 17:02 | P.PROBDLV ---
Vaginal Delivery Note - . Vaginal Delivery Note: Normal spontaneous vaginal delivery viable male infant Apgars 9 and 9 delivery time is 1318 hrs. Please see dictated H&P for intimate details of this patient's admission. In brief summary this is a pleasant 32-year-old 4 para 3 female estimated gestational age 39-3/7 weeks who presents to labor and delivery for requested induction of labor. On admission patient is 3 cm dilated has artificial rupture membranes for clear fluid. Labor is induced with Pitocin per protocol. Patient does get an epidural for pain control. Patient progresses normally and quickly gets to complete. Patient pushes the head to the perineum the posterior perineum is supported. At this time there is noted to be a stricture posteriorly and therefore a midline episiotomy is made. With this done, we immediately have controlled delivery of the infant's head over the perineum. Mouth and nares are bulb suctioned. Infant's position and a straight occiput anterior presentation. There is no evidence of nuchal cord. With gentle downward traction we then have delivery the anterior and posterior shoulder and rest this 's body. This is a vigorous viable male infant Apgars 9 and 9 delivery time is 1318 hrs. After delivery of the infant the umbilical cord is immediately clamped and cut due to the patient's history of previous child with jaundice. The infant is laid on the mother's abdomen. The placenta is then spontaneously delivered intact. Inspection of the perineum shows a 6 laceration which repaired with 3-0 Vicryl in the usual fashion. Excellent reapproximation is noted. All counts are correct 3. There are no complications. Infant and mother stable delivery room.
[2023-02-12] MEDS: ACETAMINOPHEN TAB 325 MG TAB PO PRN ×2 (01:10→10:06)
[2023-02-12 05:33] LABS: Basophils % (A) 0 %; Eosinophils # (A) 0.2 k/uL (0-0.7); Eosinophils % (A) 2 %; HCT 29.3 % (34.0-46.0); Hypochromasia Slight; Lymphocytes # (A) 2.8 k/uL (1.0-4.8); Lymphocytes % (A) 27 %; MCH 24.7 pg (25.0-35.0); MCHC 32.5 g/dL (31.0-37.0); MCV 75.9 fL (80.0-100.0); Mean Platelet Volume 7.4; Microcytosis Slight; Monocytes # (A) 0.7 k/uL (0-1.0); Monocytes % (A) 7 %; Neutrophils # (A) 6.4 k/uL (1.3-7.7); Neutrophils % (A) 61 %; Platelet Count 206 k/uL (150-450); Poikilocytosis Slight; RBC 3.86 m/uL (3.80-5.40); WBC 10.5 k/uL (3.8-10.6)
[2023-02-12] MEDS: IBUPROFEN 600 MG TAB PO PRN ×2 (05:35→14:33)
[2023-02-12 05:57] LABS: HGB 9.5 gm/dL (11.4-16.0)
--- NOTE | 2023-02-12 07:05 | P.PNOBGVD ---
Subjective - Subjective Patient reports: Reports appetite normal, Reports voiding normally, Reports pain well controlled, Reports ambulating normally : doing well Objective - Latest Vital Signs Latest vital signs: Vital Signs Temp Pulse Resp BP Pulse Ox 02/12/23 04:00 98.5 F 68 16 98/60 97 02/12/23 00:00 98.4 F 72 17 102/59 97 02/11/23 20:00 98.4 F 86 17 98/64 02/11/23 16:00 97.3 F L 80 18 103/54 02/11/23 15:00 98.6 F 87 18 99/58 02/11/23 14:30 98.3 F 75 18 115/74 02/11/23 14:15 75 115/71 02/11/23 14:00 98.1 F 80 18 120/74 02/11/23 13:45 80 119/71 02/11/23 13:30 98.1 F 87 18 117/78 Intake and Output 02/11/23 02/12/23 02/12/23 22:59 06:59 14:59 Output Total 215 Balance -215 Output: Output, Quantitative 215 Blood Loss Other: # Voids 1 2 - Exam Lungs: bilateral: normal Chest: Normal S1, Normal S2 Extremities: Present: normal Abdomen: Present: normal appearance, soft Uterus: Present: normal, firm - Labs Labs: Abnormal Lab Results - Last 24 Hours (Table) 02/12/23 Range/Units 05:06 Hgb 9.5 L D (11.4-16.0) gm/dL Hct 29.3 L (34.0-46.0) % MCV 75.9 L (80.0-100.0) fL MCH 24.7 L (25.0-35.0) pg Assessment and Plan Assessment: day #1. Patient is resting without complaints and wishes to go home. Vital signs are stable she's afebrile. Uterus is firm nontender and she is having normal lochia. CBC shows appropriate drop in her hemoglobin to 9.5. Plan today is to continue routine care discharge home later this afternoon. (1) 39 weeks gestation of Current Visit: Yes Status: Acute Code(s): Z3A.39 - 39 WEEKS GESTATION OF SNOMED Code(s): 05193592 (2) Elective induction of labor planned Current Visit: No Status: Acute Code(s): GFN0696 - SNOMED Code(s): 867875700
--- NOTE | 2023-02-12 07:12 | P.DS ---
Providers Date of admission: 02/11/23 05:49 Expected date of discharge: 02/12/23 Attending physician: Sal Robert Primary care physician: Stated None - Discharge Diagnosis(es) (1) 39 weeks gestation of Current Visit: Yes Status: Acute (2) Elective induction of labor planned Current Visit: No Status: Acute Hospital Course: Please see dictated H&P for intimate details of this patient's admission. Brief summary this pleasant 32-year-old 4 para 3 female 39-3/7 weeks who is admitted to labor and delivery for elective induction of labor. Patient quickly goes on have a vaginal delivery viable male . Please see dictated delivery note. day #1 patient's doing well wishes to go home. Patient's felt to be stable for discharge home follow up with me in 6 weeks. Procedures: Induction of labor normal vaginal delivery Patient Condition at Discharge: Good Plan - Discharge Summary New Discharge Prescriptions: New Ferrous Sulfate [Iron (65 MG Elemental)] 325 mg PO BID-W/MEALS #60 tab Ibuprofen [Motrin] 600 mg PO Q6HR PRN #30 tab PRN Reason: Mild Pain (Scale 1 To 3) Discharge Medication List Ferrous Sulfate [Iron (65 MG Elemental)] 325 mg PO BID-W/MEALS #60 tab 02/12/23 [Rx] Ibuprofen [Motrin] 600 mg PO Q6HR PRN #30 tab 02/12/23 [Rx] Follow up Appointment(s)/Referral(s): Sal Robert MD [STAFF PHYSICIAN] - 03/24/23 10:30 am Patient Instructions/Handouts: Vaginal Delivery (DC), Iron Rich Diet (ED) Activity/Diet/Wound Care/Special Instructions: No intercourse or anything per vagina for 6 weeks. Please call if any fever, chills, excessive vaginal bleeding, and/or abdominal pain. Discharge Disposition: HOME SELF-CARE
[2023-02-12] MEDS ORDERED: FERROUS SULFATE 325 MG TAB PO SCH (07:30)
[2023-02-12] MEDS: SENNOSIDES-DOCUSATE SODIUM 1 EACH TAB PO SCH (07:59)
[2023-02-12 08:08] VITALS: BP 100/64; PULSE 80; RESP 18; TEMP 97.7
== END 2023-02-12 14:49 | disposition home or self-care (01) | DRG 560 ==
LOC: 4FBP 02-11 05:49
PROVIDERS: ADMIT Obstetrics & Gynecology; ATTEND Obstetrics & Gynecology
PROC: 10E0XZZ Delivery of Products of Conception, External Approach (ICD-10-PCS; principal; 2023-02-11)
PROC: 3E033VJ Introduction of Other Hormone into Peripheral Vein, Percutaneous Approach (ICD-10-PCS; principal; 2023-02-11)
DX: O99.52 Diseases of the respiratory system complicating childbirth (principal); O99.344 Other mental disorders complicating childbirth; O99.334 Smoking (tobacco) complicating childbirth; J45.909 Unspecified asthma, uncomplicated; F41.9 Anxiety disorder, unspecified; F32.A Depression, unspecified; F17.210 Nicotine dependence, cigarettes, uncomplicated; Z88.0 Allergy status to penicillin; Z37.0 Single live birth; Z3A.39 39 weeks gestation of pregnancy
CPT/HCPCS: 85025; 86850; 86900; 86901

== ENCOUNTER 2024-11-20 05:55 | Inpatient (IN) | payer OTHER ==
[2024-11-20] MEDS ORDERED: LIDOCAINE 0.5% (PF) 5 MG/ML (50 ML SDV) SQ PRN (06:18)
[2024-11-20] MEDS ORDERED: OXYTOCIN 10 UNIT/ML 1 ML VIAL IM PRN (06:18)
[2024-11-20] MEDS ORDERED: TERBUTALINE 1 MG/ML VIAL SQ PRN (06:18)
[2024-11-20] MEDS ORDERED: miSOPROStoL 200 MCG TAB RECTAL PRN (06:18)
[2024-11-20] MEDS ORDERED: METHYLERGONOVINE 0.2 MG/ML 1 ML AMP IM PRN (06:18)
[2024-11-20] MEDS ORDERED: CARBOPROST TROMETHAMINE 250 MCG/ML 1 ML AMP IM PRN (06:18)
[2024-11-20] MEDS ORDERED: miSOPROStoL 200 MCG TAB PO PRN (06:18)
[2024-11-20] MEDS ORDERED: TRANEXAMIC 1,000 MG/100ML-NACL 1,000 MG in EMPTY BAG 1 BAG IV PRN (06:18)
[2024-11-20] MEDS: OXYTOCIN 30 UNITS/500 ML NS 30 UNIT in SALINE 1 500ML.BAG IV SCH (06:25)
[2024-11-20] MEDS: LACTATED RINGERS 1,000 ML IV SCH (06:26)
[2024-11-20 06:41] LABS: Basophils # (A) 0.1 k/uL (0-0.2); Basophils % (A) 0 %; Eosinophils # (A) 0.1 k/uL (0-0.7); Eosinophils % (A) 1 %; HCT 31.9 % (34.0-46.0); HGB 10.3 gm/dL (11.4-16.0); Lymphocytes # (A) 3.3 k/uL (1.0-4.8); Lymphocytes % (A) 25 %; MCH 26.2 pg (25.0-35.0); MCHC 32.2 g/dL (31.0-37.0); MCV 81.3 fL (80.0-100.0); Mean Platelet Volume 7.4; Monocytes # (A) 0.9 k/uL (0-1.0); Monocytes % (A) 7 %; Neutrophils # (A) 8.6 k/uL (1.3-7.7); Neutrophils % (A) 65 %; Platelet Count 295 k/uL (150-450); RBC 3.92 m/uL (3.80-5.40); RDW 13.8 % (11.5-15.5); WBC 13.3 k/uL (3.8-10.6)
[2024-11-20] MEDS ORDERED: BUTORPHANOL 1 MG/ML 1 ML VIAL IV PRN (08:27)
--- NOTE | 2024-11-20 08:30 | P.HPOB ---
History of Present Illness H&P Date: 11/20/24 Chief Complaint: 40-0/7 weeks, induction The patient is a 34-year-old 5 para 4-0-0-4 who presents at 40-0/7 weeks as established by last menstrual period and confirmed by 20-week ultrasound. She is admitted for induction of labor with all signs reassuring, category 1 heart rate tracing. She did fall into the category of advanced maternal age and declined trisomy testing. Her has otherwise been uncomplicated and group B strep status is negative. Obstetrical history: 5 para 4-0-0-4 with 4 term vaginal deliveries without complications. Current statistics are listed in history of present illness. EDC of 11/20/2024 was established by last menstrual period confirmed by 20-week ultrasound. Laboratory workup demonstrates a blood type of O+ with a negative antibody screen. Rubella status is immune. The remainder of the laboratory workup was within normal limits. 1 hour Glucola was normal and group B strep status is negative. Gynecologic history: Unremarkable with no history of any infections to include STDs. Review of Systems Review of systems is confined to history of present illness Past Medical History Past Medical History: Asthma History of Any Multi-Drug Resistant Organisms: None Reported Past Surgical History: Adenoidectomy, Hernia Repair, Tonsillectomy Additional Past Surgical History / Comment(s): tubes in ears Past Anesthesia/Blood Transfusion Reactions: No Reported Reaction Past Psychological History: Anxiety, Depression Smoking Status: Current some day smoker Past Alcohol Use History: Occasional Past Drug Use History: None Reported - Past Family History Father Family Medical History: Coronary Artery Disease (CAD) Additional Family Medical History / Comment(s): Father of heart attack at 50 years of age Medications and Allergies Home Medications Medication Instructions Recorded Confirmed Type No Known Home Medications 11/20/24 11/20/24 History Allergies Allergy/AdvReac Type Severity Reaction Status Date / Time Penicillins AdvReac Unknown Verified 11/20/24 06:16 Childhood Exam Vital Signs Temp Pulse Resp BP Pulse Ox 11/20/24 06:16 97.1 F L 87 16 115/71 99 Intake and Output 11/19/24 11/20/24 11/20/24 22:59 06:59 14:59 Other: Weight 63.957 kg In general, this is a well-developed, well-nourished white female in no acute distress. Her heart has a regular rhythm and rate without murmur. Her lungs are clear to auscultation bilaterally in all bell. Her abdomen is gravid, nondistended, has normal active bowel sounds, soft, nontender, and without any palpable masses aside from uterine fundus. Her extremities are without any cyanosis, clubbing, or significant edema and are nontender to palpation bilaterally. Digital cervical examination demonstrates her cervix to be 2 cm dilated, 50% effaced, with the vertex and presentation at -2 station. Artificial rupture of membranes is carried out demonstrating clear fluid. Results Result Diagrams: 11/20/24 06:25 Abnormal Lab Results - Last 24 Hours (Table) 11/20/24 Range/Units 06:25 WBC 13.3 H (3.8-10.6) k/uL Hgb 10.3 L (11.4-16.0) gm/dL Hct 31.9 L (34.0-46.0) % Neutrophils # 8.6 H (1.3-7.7) k/uL Assessment and Plan (1) Term Current Visit: Yes Status: Acute Code(s): Z34.90 - ENCNTR FOR SUPRVSN OF NORMAL , UNSP, UNSP TRIMESTER SNOMED Code(s): 76672132 Plan: The patient has been admitted for induction of labor and Pitocin augmentation has been started. She has undergone artificial rupture of membranes. She will have close maternal and surveillance and expectant management will be practiced. She is a good candidate for either IV or epidural analgesia, whichever she may choose.
[2024-11-20] MEDS ORDERED: diphenhydrAMINE 50 MG/ML 1 ML VIAL IVP PRN ×2 (16:30)
[2024-11-20] MEDS ORDERED: HYDROCORTISONE 2.5% RECTAL CREAM 30 GM TUBE RECTAL PRN (16:30)
[2024-11-20] MEDS ORDERED: ZOLPIDEM 5 MG TAB PO PRN (16:30)
[2024-11-20] MEDS ORDERED: OXYTOCIN 30 UNITS/500 ML NS 30 UNIT in SALINE 1 500ML.BAG IV SCH (16:30)
[2024-11-20] MEDS ORDERED: SIMETHICONE 80 MG CHEWABLE PO PRN (16:30)
[2024-11-20] MEDS ORDERED: ACETAMINOPHEN TAB 500 MG TAB PO PRN (16:30)
[2024-11-20] MEDS ORDERED: BENZOCAINE/MENTHOL SPRAY 1 GM/SPRAY AEROSOL TOPICAL PRN (16:30)
[2024-11-20] MEDS ORDERED: LANOLIN CREAM 1 GM TUBE TOPICAL PRN (16:30)
[2024-11-20] MEDS ORDERED: diphenhydrAMINE 50 MG CAP PO PRN (16:30)
[2024-11-20] MEDS ORDERED: diphenhydrAMINE 25 MG CAP PO PRN (16:30)
--- NOTE | 2024-11-20 16:34 | P.PROBDLV ---
Vaginal Delivery Note - . Vaginal Delivery Note: The patient is a 34-year-old 5 para 4-0-0-4 admitted at 40-0/7 weeks by good dating parameters. She is admitted for induction of labor with all signs reassuring, category 1 heart rate tracing. Her has been uncomplicated and group B strep status is negative. On labor and delivery, she had Pitocin started and underwent artificial rupture of membranes for clear fluid. She made progress to the active phase of labor and had an epidural catheter placed for analgesia. She lingered at approximately 4 to 5 cm for several hours and then progressed very quickly over the course of 1 hour to complete. She pushed over the course of approximately 3-5 contractions to a normal spontaneous vaginal delivery of a viable 7 pound 7 ounce baby girl with Apgars of 9 at 1 minute and 9 at 5 minutes delivered in the direct occiput anterior position. The placenta was delivered spontaneously, intact, and was grossly normal with a grossly normal, centrally inserted three-vessel cord. There were no lacerations of the perineum, vagina, or cervix. Estimated blood loss for the case was 200 mL or less. There were no complications. All sponge, instrument, and needle counts were correct. Both mother and infant are resting comfortably in recovery.
[2024-11-20] MEDS: SENNOSIDES-DOCUSATE SODIUM 1 EACH TAB PO SCH (22:18)
[2024-11-20] MEDS: IBUPROFEN 800 MG TAB PO PRN (23:05)
[2024-11-21 08:17] LABS: Basophils % (A) 0 %; Eosinophils # (A) 0.2 k/uL (0-0.7); Eosinophils % (A) 1 %; HCT 28.4 % (34.0-46.0); HGB 9.2 gm/dL (11.4-16.0); Hypochromasia Slight; Lymphocytes # (A) 3.2 k/uL (1.0-4.8); Lymphocytes % (A) 25 %; MCH 26.7 pg (25.0-35.0); MCHC 32.6 g/dL (31.0-37.0); Mean Platelet Volume 8.2; Monocytes # (A) 0.9 k/uL (0-1.0); Monocytes % (A) 7 %; Neutrophils # (A) 7.9 k/uL (1.3-7.7); Neutrophils % (A) 63 %; Platelet Count 274 k/uL (150-450); RBC 3.46 m/uL (3.80-5.40); RDW 14.2 % (11.5-15.5); WBC 12.5 k/uL (3.8-10.6)
--- NOTE | 2024-11-21 14:23 | P.DS ---
Providers Date of admission: 11/20/24 05:55 Expected date of discharge: 11/21/24 Attending physician: Guido Moncada Primary care physician: Derik Cowan - Discharge Diagnosis(es) (1) Advanced maternal age (AMA) in Current Visit: Yes Status: Acute (2) Term Current Visit: Yes Status: Acute (3) Elective induction of labor planned Current Visit: No Status: Acute Hospital Course: 34-year-old 5 now para 5 that presented to labor and delivery on 11/20 for scheduled induction of labor. Patient had a due date of 1231 based on last menstrual period and consistent with 20-week ultrasound. Patient had been receiving routine care with status been essentially uncomplicated. Patient has 4 prior spontaneous vaginal deliveries that were uncomplicated. Patient was admitted to labor and delivery and Pitocin induction of labor was begun. Patient underwent amniotomy and clear fluid was obtained. Patient progressed through labor progressing to complete and began pushing. Patient had a normal spontaneous vaginal delivery of a viable female infant, weight of 7 pounds 7 ounces. No lacerations were appreciated after delivery. Patient has done well . On this day #1 she is ambulating and voiding without difficulty. States her pain is well-controlled. Her lochia is minimal to moderate. She denies concerns and would like discharge home at 24 hours. Patient Condition at Discharge: Good Plan - Discharge Summary New Discharge Prescriptions: No Action No Known Home Medications Discharge Medication List No Known Home Medications 11/20/24 [History] Follow up Appointment(s)/Referral(s): Guido Moncada MD [STAFF PHYSICIAN] - 01/01/25 1:15 pm Patient Instructions/Handouts: Vaginal Delivery (GEN), Vaginal Delivery (DC) Activity/Diet/Wound Care/Special Instructions: No tub baths or intercourse until 6 weeks . [id number]-msdrdof ibuprofen 600 mg or 3 tablets every 6 hours as needed for pain. Patient is to call the office to make a routine visit for [address] Moncada for routine care. Discharge Disposition: HOME SELF-CARE
[2024-11-22 09:37] VITALS: BP 124/78; PULSE 62; RESP 18; TEMP 97.4
== END 2024-11-22 10:40 | disposition home or self-care (01) | DRG 560 ==
LOC: 4FBP 05:55 → MERGE 06:00
PROVIDERS: ADMIT Obstetrics & Gynecology; ATTEND Obstetrics & Gynecology
PROC: 10E0XZZ Delivery of Products of Conception, External Approach (ICD-10-PCS; principal; 2024-11-20)
PROC: 10907ZC Drainage of Amniotic Fluid, Therapeutic from Products of Conception, Via Natural or Artificial Opening (ICD-10-PCS; 2024-11-20)
PROC: 3E033VJ Introduction of Other Hormone into Peripheral Vein, Percutaneous Approach (ICD-10-PCS; 2024-11-20)
DX: O99.334 Smoking (tobacco) complicating childbirth (principal); Z37.0 Single live birth; F17.210 Nicotine dependence, cigarettes, uncomplicated; Z3A.40 40 weeks gestation of pregnancy
CPT/HCPCS: 85025; 86850; 86900; 86901